=== PATIENT | female | born 1970 | race Caucasian/White ===

== ENCOUNTER → 2016-11-25 | Outpatient (CLI) | payer OTHER | LOC: MHCPAIN 09:24 | DX: G89.29 Other chronic pain (principal); M47.812 Spondylosis without myelopathy or radiculopathy, cervical region; R51 Headache | CPT/HCPCS: G0463 ==

== ENCOUNTER → 2016-12-19 | Outpatient (CLI) | payer OTHER | LOC: MHCPAIN 13:49 | DX: G89.29 Other chronic pain (principal); M50.122 Cervical disc disorder at C5-C6 level with radiculopathy | CPT/HCPCS: G0463 ==

== ENCOUNTER → 2017-06-28 | Outpatient (CLI) | payer OTHER | LOC: MHCPAIN 08:20 | DX: G89.29 Other chronic pain (principal); M50.90 Cervical disc disorder, unspecified, unspecified cervical region; M54.12 Radiculopathy, cervical region | CPT/HCPCS: G0463 ==

== ENCOUNTER → 2017-07-13 | Outpatient (CLI) | payer OTHER | LOC: MHCPAIN 13:54 | DX: M50.323 Other cervical disc degeneration at C6-C7 level (principal); M48.02 Spinal stenosis, cervical region | CPT/HCPCS: J1100; J2250; J3010; Q9967 ==

== ENCOUNTER → 2017-08-15 | Outpatient (CLI) | payer OTHER | LOC: MHCPAIN 14:46 | DX: G89.29 Other chronic pain (principal); M50.322 Other cervical disc degeneration at C5-C6 level; M54.12 Radiculopathy, cervical region; M54.81 Occipital neuralgia; R51 Headache | CPT/HCPCS: G0463 ==

== ENCOUNTER → 2017-08-23 | Outpatient (CLI) | payer OTHER | LOC: MHCPAIN 08:10 | DX: M54.81 Occipital neuralgia (principal) | CPT/HCPCS: J1100 ==

== ENCOUNTER → 2017-10-10 | Outpatient (CLI) | payer OTHER | LOC: MHCPAIN 15:48 | DX: G89.29 Other chronic pain (principal); M50.90 Cervical disc disorder, unspecified, unspecified cervical region; M54.12 Radiculopathy, cervical region; M54.81 Occipital neuralgia; R51 Headache | CPT/HCPCS: G0463 ==

== ENCOUNTER → 2018-02-21 | Outpatient (CLI) | payer OTHER | LOC: MHCPAIN 07:53 | DX: G89.29 Other chronic pain (principal); M54.12 Radiculopathy, cervical region; M54.81 Occipital neuralgia; R51 Headache; M47.812 Spondylosis without myelopathy or radiculopathy, cervical region | CPT/HCPCS: G0463 ==

== ENCOUNTER → 2018-03-08 | Outpatient (CLI) | payer OTHER | LOC: MHCPAIN 03-07 14:21 | DX: M54.12 Radiculopathy, cervical region (principal); M47.812 Spondylosis without myelopathy or radiculopathy, cervical region | CPT/HCPCS: J1100; Q9967 ==

== ENCOUNTER → 2019-11-20 | Outpatient (CLI) | payer OTHER | LOC: MHCPAIN 07:55 | DX: M47.812 Spondylosis without myelopathy or radiculopathy, cervical region (principal); G89.29 Other chronic pain; M54.2 Cervicalgia; R51.9 Headache, unspecified; M54.81 Occipital neuralgia | CPT/HCPCS: G0463 ==

== ENCOUNTER → 2019-11-21 | Outpatient (CLI) | payer OTHER | LOC: MHCPAIN 15:20 | DX: M47.812 Spondylosis without myelopathy or radiculopathy, cervical region (principal); M54.12 Radiculopathy, cervical region | CPT/HCPCS: J1100; Q9967 ==

== ENCOUNTER → 2019-12-04 | Outpatient (CLI) | payer OTHER | LOC: MHCPAIN 08:07 | DX: M47.812 Spondylosis without myelopathy or radiculopathy, cervical region (principal); M54.2 Cervicalgia; M54.81 Occipital neuralgia; R51.9 Headache, unspecified; G89.29 Other chronic pain | CPT/HCPCS: G0463 ==

== ENCOUNTER → 2019-12-25 | Outpatient (CLI) | payer OTHER | LOC: COL.RAD 09:02 | DX: M51.36 Other intervertebral disc degeneration, lumbar region (principal); M48.061 Spinal stenosis, lumbar region without neurogenic claudication ==

== ENCOUNTER → 2019-12-31 | Outpatient (CLI) | payer OTHER | LOC: MHCPAIN 12:43 | DX: M47.817 Spondylosis without myelopathy or radiculopathy, lumbosacral region (principal); M54.2 Cervicalgia; M54.5 Low back pain; G89.29 Other chronic pain | CPT/HCPCS: G0463 ==

== ENCOUNTER → 2020-01-09 | Outpatient (CLI) | payer OTHER | LOC: MHCPAIN 13:59 | DX: M47.817 Spondylosis without myelopathy or radiculopathy, lumbosacral region (principal); M54.16 Radiculopathy, lumbar region | CPT/HCPCS: J1100; Q9967 ==

== ENCOUNTER → 2020-01-22 | Outpatient (CLI) | payer OTHER | LOC: MHCPAIN 08:43 | DX: M47.812 Spondylosis without myelopathy or radiculopathy, cervical region (principal); M54.2 Cervicalgia; R51.9 Headache, unspecified; G89.29 Other chronic pain | CPT/HCPCS: G0463 ==

== ENCOUNTER → 2020-01-27 | Outpatient (CLI) | payer OTHER | LOC: MHCPAIN 13:19 | DX: M47.812 Spondylosis without myelopathy or radiculopathy, cervical region (principal); M54.2 Cervicalgia; R51.9 Headache, unspecified ==

== ENCOUNTER → 2020-02-20 | Outpatient (CLI) | payer OTHER | LOC: MHCPAIN 07:45 | DX: M47.812 Spondylosis without myelopathy or radiculopathy, cervical region (principal); M54.2 Cervicalgia; R51.9 Headache, unspecified; G89.29 Other chronic pain | CPT/HCPCS: G0463; J0461 ==

== ENCOUNTER → 2020-05-25 | Outpatient (CLI) | payer OTHER | LOC: MHCPAIN 14:39 | DX: M47.812 Spondylosis without myelopathy or radiculopathy, cervical region (principal); M54.2 Cervicalgia; R51.9 Headache, unspecified | CPT/HCPCS: G0463; J1100; J2250; J3010 ==

== ENCOUNTER → 2020-06-22 | Outpatient (CLI) | payer OTHER | LOC: MHCPAIN 13:32 | DX: M47.812 Spondylosis without myelopathy or radiculopathy, cervical region (principal); M54.2 Cervicalgia; R51.9 Headache, unspecified | CPT/HCPCS: G0463 ==

== ENCOUNTER → 2020-07-13 | Outpatient (CLI) | payer OTHER | LOC: MHCPAIN 12:08 | DX: M47.812 Spondylosis without myelopathy or radiculopathy, cervical region (principal); M54.2 Cervicalgia; R51.9 Headache, unspecified | CPT/HCPCS: G0463 ==

== ENCOUNTER → 2020-11-05 | Outpatient (CLI) | payer OTHER | LOC: MHCPAIN 07:30 | DX: M47.812 Spondylosis without myelopathy or radiculopathy, cervical region (principal); M54.2 Cervicalgia; R51.9 Headache, unspecified | CPT/HCPCS: G0463; J1100; J2250; J3010 ==

== ENCOUNTER → 2020-12-29 | Outpatient (CLI) | payer OTHER | LOC: MHCPAIN 09:45 | DX: M47.812 Spondylosis without myelopathy or radiculopathy, cervical region (principal); M54.2 Cervicalgia; R51.9 Headache, unspecified | CPT/HCPCS: G0463 ==

== ENCOUNTER → 2021-06-21 | Outpatient (CLI) | payer OTHER | LOC: MHCPAIN 15:34 | DX: M54.2 Cervicalgia (principal); M47.812 Spondylosis without myelopathy or radiculopathy, cervical region; G44.89 Other headache syndrome | CPT/HCPCS: G0463 ==

== ENCOUNTER → 2022-03-22 | Outpatient (CLI) | payer OTHER | LOC: MHCPAIN 15:44 | DX: M47.812 Spondylosis without myelopathy or radiculopathy, cervical region (principal); M54.2 Cervicalgia; R51.9 Headache, unspecified | CPT/HCPCS: G0463 ==

== ENCOUNTER → 2022-04-18 | Outpatient (CLI) | payer OTHER ==
[~2022-04-18] MED LIST: AIMOVIG AU70 MG/1 M1; DULCOLAX STOOL100 MG PO; ESTRACE0.5 MG PO; MAG-OX 400400 MG/TAB PO; MAXALT10 MG; NATURAL IRON65 MG; PROAIR HFA0.09 MG/AC IH; TYLENOL 325MG325 MG PO; VAGIFEM10 MCG VG; VALTREX 50500 MG/TAB PO; VITAMIN B-2 100MG; VOLTAREN 75 DR75 MG PO; VOLTAREN GEL 1%1 TU TP
== END ==
LOC: MHCPAIN 14:47
DX: M47.812 Spondylosis without myelopathy or radiculopathy, cervical region (principal); M54.12 Radiculopathy, cervical region
CPT/HCPCS: J1100; Q9967

== ENCOUNTER → 2022-05-31 | Outpatient (CLI) | payer OTHER | LOC: MHCPAIN 15:41 | DX: M47.892 Other spondylosis, cervical region (principal); M54.12 Radiculopathy, cervical region | CPT/HCPCS: G0463 ==

== ENCOUNTER → 2023-11-21 | Outpatient (CLI) | payer OTHER | LOC: MHCPAIN 07:58 | DX: M51.26 Other intervertebral disc displacement, lumbar region (principal); M48.061 Spinal stenosis, lumbar region without neurogenic claudication; M47.812 Spondylosis without myelopathy or radiculopathy, cervical region; M48.02 Spinal stenosis, cervical region | CPT/HCPCS: G0463 ==